=== PATIENT | female | born 2000 | race Caucasian/White ===

== ENCOUNTER 2020-04-03 18:59 | Emergency (ER) | payer BC, MEDICAID ==
[~2020-04-03] VITALS: Ht 157.5 cm; Wt 61.4 kg
[2020-04-03] MEDS ORDERED: ADDERALL XR 5 MG5 MG PO (19:22)
[2020-04-03 21:01] VITALS: BP 103/68
== END 2020-04-03 21:01 | disposition home or self-care (01) ==
LOC: ED 18:59
DX: S53.401A Unspecified sprain of right elbow, initial encounter (principal); W19.XXXA Unspecified fall, initial encounter; Y92.002 Bathroom of unspecified non-institutional (private) residence as the place of occurrence of the external cause

== ENCOUNTER 2020-04-16 01:50 | Emergency (ER) | payer BC, MEDICAID ==
[~2020-04-16] VITALS: Ht 5.1 cm; Wt 61.4 kg
[~2020-04-16 01:50] MED LIST: ADDERALL XR 5 MG5 MG PO
[2020-04-16 02:51] LABS: PH-URINE 6.5 (5.0 - 8.0); URINE APPEARANCE HAZY; URINE BILIRUBIN NEGATIVE (NEGATIVE); URINE BLOOD TRACE (NEGATIVE); URINE COLOR YELLOW; URINE GLUCOSE NEGATIVE (NEGATIVE); URINE KETONE NEGATIVE (NEGATIVE); URINE LEUKOCYTE ESTERASE TRACE (NEGATIVE); URINE NITRATE NEGATIVE (NEGATIVE); URINE PROTEIN(semi-quant) NEGATIVE (NEGATIVE); URINE UROBILINOGEN NORMAL (NORMAL)
[2020-04-16 02:52] LABS: URINE MUCUS PRESENT (NOT PRESENT)
[2020-04-16 03:08] LABS: EOS # 0.1 (0.04-0.40); EOS % 0.9 % (0.1-4.0); HEMATOCRIT 40.9 % (35.0-45.0); HEMOGLOBIN 13.8 g/dL (12.0-15.0); LYMPH# 3.2 (1.20-3.40); MEAN CELL VOLUME 89 fl (78-95); MEAN CORPUSCULAR HEMOGLOBIN 30 pg (26-32); MEAN CORPUSCULAR HGB CONC 34 g/dL (33-37); MEAN PLATELET VOLUME 10.2 fl (7.4-10.4); MONO # 0.5 (0.10-0.60); NEU # 4.8 (1.40-6.50); PLATELET COUNT 224 K/mm3 (130-400); RED CELL DISTRIBUTION WIDTH 12.8 % (11.5-14.5); WHITE BLOOD COUNT 8.6 K/mm3 (4.8-10.8)
[2020-04-16 03:09] LABS: ALBUMIN 4.2 g/dL (3.5-5.0); POTASSIUM 3.7 mmol/L (3.5-5.1)
[2020-04-16 03:11] LABS: CALCIUM 8.8 mg/dL (8.3-10.5)
[2020-04-16 03:12] LABS: TOTAL PROTEIN 7.2 g/dL (6.4-8.3)
[2020-04-16 03:14] LABS: TOTAL BILIRUBIN 0.3 mg/dL (0.2-1.2)
[2020-04-16] MEDS ORDERED: MACROBID 100 M100 MG PO (03:33)
[2020-04-16 04:10] VITALS: BP 107/72
== END 2020-04-16 04:10 | disposition home or self-care (01) ==
LOC: ED 01:50
PROVIDERS: Nurse Practitioner Family
DX: R42 Dizziness and giddiness (principal); H53.8 Other visual disturbances; F12.10 Cannabis abuse, uncomplicated; F90.9 Attention-deficit hyperactivity disorder, unspecified type; Z88.0 Allergy status to penicillin